=== PATIENT | male | born 2005 | race Caucasian/White ===

== ENCOUNTER 2025-10-05 13:03 | Emergency (ER) | payer SELFPAY ==
[~2025-10-05] VITALS: Ht 167.6 cm; Wt 73.0 kg
[2025-10-05 13:07] VITALS: TEMP 98.4; O2SAT 99
[2025-10-05] MEDS ORDERED: ACET-2708 MT (14:20)
[2025-10-05 15:15] VITALS: BP 146/86; PULSE 64; RESP 16; O2SAT 99
== END 2025-10-05 15:16 | disposition home or self-care (01) ==
LOC: ER 13:03
DX: M25.571 Pain in right ankle and joints of right foot (principal); Z88.0 Allergy status to penicillin
CPT/HCPCS: 73600; 99283; A6449; Z7610